=== PATIENT | female | born 1990 ===

== ENCOUNTER 2018-01-07 13:08 | Emergency (ER) | payer OTHER ==
--- NOTE | 2018-01-07 16:18 | UC ---
Respiratory Complaint HPI - History of Current Complaint Chief Complaint: UCGeneralIllness Stated Complaint: COUGH,SORE THROAT Hx Last Menstrual Period: 12/24/17 Pain Intensity: 0 - Allergies/Home Medications Allergies/Adverse Reactions: Allergies Allergy/AdvReac Type Severity Reaction Status Date / Time No Known Allergies Allergy Verified 01/07/18 15:57 Home Medications: Home Medications Control 1 cap PO DAILY 01/07/18 [History Confirmed 01/07/18] PMH/Surg Hx/FS Hx/Imm Hx - Surgical History Surgical History: None - Social History Alcohol Use: None Substance Use Type: None Smoking Status (MU): Never Smoked Tobacco Physical Exam Vital Signs: Initial Vital Signs Temp 98.7 F 01/07/18 15:59 Pulse 102 01/07/18 15:59 Resp 18 01/07/18 15:59 BP 120/86 01/07/18 15:59 Pulse Ox 99 01/07/18 15:59 UC Diagnostic Evaluation - Laboratory O2 Sat by Pulse Oximetry: 99 Discharge - Discharge Plan Referrals: No Primary Care Phys,NOPCP [Primary Care Provider] -
--- NOTE | 2018-01-07 19:00 | UC ---
Cindy Larsen Rebecca, scribed for Toñito Hardin MD on 01/07/18 at 1701 . General HPI - HPI Summary HPI Summary: Patient is a 27 y/o F who presents to [facility] c/o sore throat, myalgias, low grade subjective fever and rhinorrhea for 1 week. Sx aggravated and alleviated by nothing. Additionally c/o postnasal drip and R ear pain. Denies cough and SOB. is currently experiencing similar symptoms. - History of Current Complaint Chief Complaint: UCGeneralIllness Stated Complaint: COUGH,SORE THROAT Hx Obtained From: Patient Hx Last Menstrual Period: 12/24/17 Onset/Duration: Lasting Weeks - 1 week, Still Present Current Severity: None Pain Intensity: 0 Aggravating: Nothing Alleviating: Nothing Associated Signs & Symptoms: Positive: Fever, Other - Sore throat, myalgias, rhinorrhea, postnasal drip, right ear pain - Allergy/Home Medications Allergies/Adverse Reactions: Allergies Allergy/AdvReac Type Severity Reaction Status Date / Time No Known Allergies Allergy Verified 01/07/18 15:57 Home Medications: Home Medications Control 1 cap PO DAILY 01/07/18 [History Confirmed 01/07/18] PMH/Surg Hx/FS Hx/Imm Hx - Additional Past Medical History Additional PMH: No PMHx: HTN, DM, CAD - Surgical History Surgical History: None - Family History Known Family History: Negative: Hypertension - Social History Alcohol Use: None Substance Use Type: None Smoking Status (MU): Never Smoked Tobacco Review of Systems Constitutional: Fever Skin: Negative Eyes: Negative ENT: Sore Throat, Ear Ache - Right, Nasal Discharge, Other - Postnasal drip Respiratory: Negative Cardiovascular: Negative Gastrointestinal: Negative Genitourinary: Negative Motor: Negative Neurovascular: Negative Musculoskeletal: Myalgia Neurological: Negative Psychological: Negative All Other Systems Reviewed And Are Negative: Yes Physical Exam - Summary Physical Exam Summary: VITAL SIGNS: Reviewed. GENERAL: ~Patient is a well developed and nourished female who is lying comfortable in the stretcher. ~Patient is not in any acute respiratory distress. HEAD AND FACE: Normocephalic EYES: PERRLA, EOMI x 2. EARS: Hearing grossly intact. MOUTH: Pharyngeal erythema. Runny nose. NECK: Supple, trachea is midline, no adenopathy, no JVD, no carotid bruit. CHEST: Symmetric, no tenderness at palpation LUNGS: Clear to auscultation bilaterally. No wheezing or crackles. CVS: Regular rate and rhythm, S1 and S2 present, no murmurs or gallops appreciated. ABDOMEN: Soft, non-tender. Bowel sounds are normal. No abdominal abnormal pulsations. EXTREMITIES: Full ROM in all major joints, no edema, no cyanosis or clubbing. NEURO: Alert and oriented x 3. No acute neurological deficits. Speech is normal and follows commands. SKIN: Dry and warm Triage Information Reviewed: Yes Vital Signs: Initial Vital Signs Temp 98.7 F 01/07/18 15:59 Pulse 102 01/07/18 15:59 Resp 18 01/07/18 15:59 BP 120/86 01/07/18 15:59 Pulse Ox 99 01/07/18 15:59 Vital Signs Reviewed: Yes Re-Evaluation - Re-Evaluation First Eval Re-Evaluation Time: 16:48 Comment: Discussed results and D/C and treatment plan. Answered questions. Course/Dx - Course Course Of Treatment: Patient is a 27 y/o F who presents to [facility] c/o sore throat, myalgias, low grade subjective fever and rhinorrhea for 1 week. Additionally c/o postnasal drip and R ear pain. Denies cough and SOB. is currently experiencing similar symptoms. Influenza B positive. Influenza A and strep negative. Pt will be D/C to home with Dx of influenza and URI with Rx for Tamiflu. She understands and agrees. - Differential Dx - Multi-Symptom Provider Diagnoses: URI. Influenza. Discharge - Sign-Out/Discharge Documenting (check all that apply): Discharge - Discharge Plan Condition: Stable Disposition: HOME Prescriptions: Oseltamivir CAP* [Tamiflu CAP*] 75 mg PO BID #10 cap Patient Education Materials: Influenza (DC) Forms: *Work Release Referrals: [facility] [Outside] No Primary Care Phys,NOPCP [Primary Care Provider] - Additional Instructions: Take medications as instructed Increase your fluid intake Return to the if symptoms worsen - Billing Disposition and Condition Condition: STABLE Disposition: HOME The documentation as recorded by the Cindy hines Rebecca accurately reflects the service I personally performed and the decisions made by , Toñito Hardin MD.
== END 2018-01-07 17:05 | disposition home or self-care (01) ==
LOC: UCEAST 13:08
DX: J11.1 Influenza due to unidentified influenza virus with other respiratory manifestations (principal)
CPT/HCPCS: 87502; 87651; 99202; G0463

== ENCOUNTER 2018-02-08 10:15 | Emergency (ER) | payer OTHER ==
[2018-02-08] MEDS ORDERED: Methocarbamol* 100 MG/ML 10 ML VIAL IV ONE (10:38)
[2018-02-08] MEDS ORDERED: Ketorolac INJ* 30 MG/ML 1 ML VIAL IV PUSH ONE (10:38)
--- NOTE | 2018-02-08 11:59 | RAD ---
Indication: Right flank pain. CT of the abdomen and pelvis was performed without oral or IV contrast administration. Coronal and sagittal reconstructed images were obtained. The lung bases demonstrate no pleural fluid, nodules or masses. Heart is of normal size without evidence of pericardial effusion. Liver is normal in size. No focal lesions or intrahepatic ductal dilatation is noted. Spleen is normal in size. Pancreas demonstrates no mass or pancreatic duct dilatation. No adrenal lesions are noted. There is right hydronephrosis and hydroureter noted. There is a calculus in the right ureterovesicular junction measuring 3 mm. Left kidney shows no hydronephrosis. The urinary bladder is otherwise unremarkable. The uterus is unremarkable. No hernias are noted. The appendix is visualized and is otherwise unremarkable. No pelvic adenopathy is noted. No dilated loops of bowel are noted. IMPRESSION: Right hydronephrosis and hydroureter with a 2 to 3 mm calculus at the right ureterovesicular junction. Normal appendix is present.
--- NOTE | 2018-02-08 12:50 | ED ---
Abdominal Pain/Female - HPI Summary HPI Summary: Is an otherwise healthy 28-year-old female presenting to the ED with chief complaint of right flank pain which began this morning. Denies any urinary symptoms. She states she started her menstrual cycle this morning, but states this feels different than her menstrual cramps. She states she has had the same pain 3 years ago with right-sided flank pain, CT scan was obtained which did not show a kidney stone at the time. No other history of kidney stones or UTIs. Denies any trauma, previous back pain or muscle spasms. She denies nausea, vomiting, diarrhea, constipation. Denies fevers, sweats, chills. - History of Current Complaint Chief Complaint: EDFlankPain Stated Complaint: LWR BACK PAIN Time Seen by Provider: 02/08/18 10:30 Hx Obtained From: Patient Hx Last Menstrual Period: 12/24/17 ?: No Onset/Duration: Sudden Onset Timing: Constant Severity Initially: Mild Severity Currently: Mild Pain Intensity: 8 Pain Scale Used: 0-10 Numeric Location: Flank Radiates: No Radiates to: Back Character: Cramping Aggravating Factor(s): Nothing Alleviating Factor(s): Nothing Associated Signs and Symptoms: Positive: Negative. Negative: Blood in Stool, Urinary Symptoms, Vaginal Discharge, Nausea, Diarrhea - Risk Factors Ectopic Risk Factor: Negative Ovarian Torsion Risk Factor: Reproductive Age Allergies/Adverse Reactions: Allergies Allergy/AdvReac Type Severity Reaction Status Date / Time No Known Allergies Allergy Verified 02/08/18 10:19 Home Medications: Home Medications Norethindrone (NF) [Maddi (NF)] 0.35 mg PO DAILY 02/08/18 [History Confirmed 02/08/18] PMH/Surg Hx/FS Hx/Imm Hx Previously Healthy: Yes - Immunization History Hx Pertussis Vaccination: No Immunizations Up to Date: Unable to Obtain/Confirm Infectious Disease History: No Infectious Disease History: Denies: Traveled Outside the [place] in Last 30 Days - Family History Known Family History: Negative: Hypertension - Social History Occupation: Employed Full-time Lives: With Family Alcohol Use: None Hx Substance Use: No Substance Use Type: Reports: None Hx Tobacco Use: No Smoking Status (MU): Never Smoked Tobacco Review of Systems Constitutional: Negative Negative: Fever, Chills, Fatigue Negative: Palpitations, Chest Pain Negative: Shortness Of Breath, Cough Negative: Abdominal Pain, Vomiting, Diarrhea, Nausea Positive: see HPI, flank pain Negative: Arthralgia, Myalgia Skin: Negative Negative: Headache, Weakness Psychological: Normal All Other Systems Reviewed And Are Negative: Yes Physical Exam Triage Information Reviewed: Yes Vital Signs On Initial Exam: Initial Vitals Temp Pulse Resp BP Pulse Ox 97.2 F 78 16 102/75 100 02/08/18 10:19 02/08/18 10:19 02/08/18 10:19 02/08/18 10:19 02/08/18 10:19 Vital Signs Reviewed: Yes Appearance: Positive: Well-Appearing, Well-Nourished Skin: Positive: Warm, Skin Color Reflects Adequate Perfusion Head/Face: Positive: Normal Head/Face Inspection Eyes: Positive: EOMI, LUIS, Conjunctiva Clear Neck: Positive: Supple, No Lymphadenopathy Respiratory/Lung Sounds: Positive: Clear to Auscultation, Breath Sounds Present Cardiovascular: Positive: RRR, Pulses are Symmetrical in both Upper and Lower Extremities Abdomen Description: Positive: Soft, Other: - No CVA tenderness Bowel Sounds: Positive: Present Musculoskeletal: Positive: Normal, Strength/ROM Intact Neurological: Positive: Sensory/Motor Intact, Alert, Oriented to Person Place, Time, Speech Normal Psychiatric: Positive: Normal AVPU Assessment: Alert - Suzette Coma Scale Best Eye Response: 4 - Spontaneous Best Motor Response: 6 - Obeys Commands Best Verbal Response: 5 - Oriented Coma Scale Total: 15 Diagnostics - Vital Signs Vital Signs Temp Pulse Resp BP Pulse Ox 02/08/18 11:19 69 121/73 100 02/08/18 10:19 97.2 F 78 16 102/75 100 - Laboratory Lab Statement: Any lab studies that have been ordered have been reviewed, and results considered in the medical decision making process. Abdominal Pain Fem Course/Dx - Course Course Of Treatment: In the course of treatment, the patient is evaluated for right flank pain. She is evaluated for back spasms versus kidney stone versus pyelonephritis. UA obtained. CT abdomen and pelvis without contrast obtained which shows: IMPRESSION: Right hydronephrosis and hydroureter with a 2 to 3 mm calculus at the right. ureterovesicular junction. Normal appendix is present. We were unable to get line and labs while she was in the ED. However she remains afebrile, denies any pain since arriving to the ED and other vital signs are stable. UA shows 2+ white blood cells, 3+ RBCs and 1+ leuks. She is placed on Keflex and will follow-up with Dr. Napoles. Dr. Napoles called at 1 :30 PM to make aware of patient. He is comfortable with her discharge at this time as she denies any pain and will be treated adequately for pain control as well as antibiotics for UTI. - Diagnoses Differential Diagnosis: Positive: Renal Colic - About 2 mm and just passed on their own, Urinary Tract Infection Provider Diagnoses: Kidney stone Discharge - Sign-Out/Discharge Documenting (check all that apply): Discharge - Discharge Plan Condition: Stable Disposition: HOME Prescriptions: Cephalexin CAP* [Keflex CAP*] 500 mg PO QID #20 cap MDD 4 traMADol TAB* [Ultram*] 50 mg PO Q8H PRN #5 tab MDD 3 PRN Reason: Pain Patient Education Materials: Kidney Stones (ED) Referrals: No Primary Care Phys,NOPCP [Primary Care Provider] - Erick aNpoles MD [Medical Doctor] - Additional Instructions: Tramadol as needed for pain please follow up with Urology - Billing Disposition and Condition Condition: STABLE Disposition: HOME
[2018-02-08 13:15] LABS: Urine Appearance Cloudy; Urine Blood 3+ (Negative); Urine Color Yellow; Urine Ketones Negative (Negative); Urine Protein Negative (Negative); Urine Specific Gravity 1.018 (1.010-1.030); Urine Urobilinogen Negative (Negative)
[2018-02-08 13:41] VITALS: BP 127/65
== END 2018-02-08 13:38 | disposition home or self-care (01) ==
LOC: ED 10:15
DX: N13.2 Hydronephrosis with renal and ureteral calculous obstruction (principal); N39.0 Urinary tract infection, site not specified
CPT/HCPCS: 74176; 81003; 81015; 87086; 96374; 96375; 99283; J2800